=== PATIENT | female | born 1995 ===

== ENCOUNTER 2017-04-02 11:50 | Emergency (ER) | payer MEDICAID, OTHER ==
[2017-04-02 11:57] VITALS: BP 117/80; PULSE 70; RESP 16; TEMP 98.2; O2SAT 99
--- NOTE | 2017-04-02 12:53 | ED PDOC ---
HPI: Abdomen Time Seen by Provider: 04/02/17 12:46 Chief Complaint (Nursing): Abdominal Pain Chief Complaint (Provider): 12:20 History Per: Patient (22 y/o female here for evaluation of rash in multiple locations of abdomen/neck x 1 year noted with increasing pigmentation on abdomen. Has been told in past she has 'eczema' but would like further testing. Has not been taking any medications. Denies any vaginal discharge/ urinary discomfort.) Past Medical History Reviewed: Historical Data, Nursing Documentation, Vital Signs Vital Signs: Last Vital Signs Temp 98.2 F 04/02/17 11:57 Pulse 70 04/02/17 11:57 Resp 16 04/02/17 11:57 BP 117/80 04/02/17 11:57 Pulse Ox 99 04/02/17 11:57 - Family History Family History: States: Unknown Family Hx - Home Medications Home Medications: Ambulatory Orders Medication Instructions Recorded Ibuprofen [Motrin Tab] 800 mg PO Q6H PRN #20 tab 08/23/16 Ondansetron ODT [Zofran ODT] 4 mg PO QID #20 odt 08/23/16 Clotrimazole/Betamethasone 0.5 ml TOP BID #1 bottle 04/02/17 [Lotrisone] - Allergies Allergies/Adverse Reactions: Allergies Allergy/AdvReac Type Severity Reaction Status Date / Time No Known Allergies Allergy Verified 05/10/15 20:40 Review of Systems ROS Statement: Except As Marked, All Systems Reviewed And Found Negative Physical Exam - Reviewed Nursing Documentation Reviewed: Yes Vital Signs Reviewed: Yes - Physical Exam Appears: Positive for: Well, Non-toxic, No Acute Distress Head Exam: Positive for: ATRAUMATIC, NORMAL INSPECTION, NORMOCEPHALIC Skin: Positive for: Normal Color, Warm, Rash (small region of hyperpigmentation noted right lateral neck. Noted 2 cm region left lower abdomen with scaly region surrounding region of hyperpigmentation and centralized hypopigmentation. ) Eye Exam: Positive for: EOMI, Normal appearance, PERRL ENT: Positive for: Normal ENT Inspection Neck: Positive for: Normal, Painless ROM Cardiovascular/Chest: Positive for: Regular Rate, Rhythm Respiratory: Positive for: CNT, Normal Breath Sounds Gastrointestinal/Abdominal: Positive for: Normal Exam, Bowel Sounds, Soft Back: Positive for: Normal Inspection Extremity: Positive for: Normal ROM Neurologic/Psych: Positive for: Alert, Oriented - ECG O2 Sat by Pulse Oximetry: 99 Disposition - Clinical Impression Clinical Impression: Fungal infection - Patient ED Disposition Is Patient to be Admitted: No - Disposition Referrals: Vinod Bond MD [Staff Provider] - Disposition: Routine/Home Disposition Time: 12:54 Condition: FAIR Prescriptions: Clotrimazole/Betamethasone [Lotrisone] 0.5 ml TOP BID #1 bottle Instructions: Tinea Corporis (ED) Forms: [employer] (Citizen Of [place])
[2017-04-02 12:55] LABS: RBC URINE 3 /hpf (0-3); URINE BACTERIA RARE (<OCC); URINE BILIRUBIN NEGATIVE (NEGATIVE); URINE BLOOD NEGATIVE (NEGATIVE); URINE COLOR YELLOW (YELLOW); URINE GLUCOSE (UA) NEG (Normal); URINE KETONE NEGATIVE (NEGATIVE); URINE LEUKOCYTE ESTERASE MOD Leu/uL (Negative); URINE PROTEIN NEGATIVE (NEGATIVE); URINE UROBILINOGEN 0.2-1.0 mg/dL (0.2-1.0)
[2017-04-02 12:57] LABS: WBC URINE 20 /hpf (0-5)
== END 2017-04-02 13:15 | disposition home or self-care (01) ==
LOC: H.ER 11:50
DX: B36.9 Superficial mycosis, unspecified (principal)

== ENCOUNTER 2018-01-10 17:49 | Emergency (ER) | payer MEDICAID ==
[2018-01-10 18:24] VITALS: BP 128/88; PULSE 84; RESP 16; TEMP 98.1; O2SAT 100
== END 2018-01-10 22:05 | disposition left against medical advice (07) ==
LOC: H.ER 17:49
DX: Z02.89 Encounter for other administrative examinations (principal)

== ENCOUNTER 2018-01-12 10:34 | Emergency (ER) | payer MEDICAID ==
[2018-01-12 10:48] VITALS: O2SAT 100
--- NOTE | 2018-01-12 11:24 | ED PDOC ---
HPI: Female Pain Time Seen by Provider: 01/12/18 11:08 Chief Complaint (Nursing): Abdominal Pain Chief Complaint (Provider): cramping, spotting, History Per: Patient History/Exam Limitations: no limitations Onset/Duration Of Symptoms: Days (2), Intermittent Episodes Severity: Moderate Additional Complaint(s): 22yo female presents with +home test and bilateral pelvic cramping, vaginal spotting. Denies dizziness, syncope or unilateral pain. LMP December 10, regular. Denies history STDs or prior . Abnormal Vaginal Bleeding: Yes Last Menstral Period: december 10 : 0 Para: 0 Past Medical History Reviewed: Historical Data, Nursing Documentation, Vital Signs Vital Signs: Last Vital Signs Temp 98.3 F 01/12/18 10:47 Pulse 98 H 01/12/18 10:47 Resp 20 01/12/18 10:47 BP 109/73 01/12/18 10:47 Pulse Ox 100 01/12/18 10:47 - Medical History PMH: No Chronic Diseases - Surgical History Surgical History: No Surg Hx - Family History Family History: States: Unknown Family Hx - Living Arrangements Living Arrangements: With Family - Social History Drugs: Denies - Home Medications Home Medications: Ambulatory Orders Medication Instructions Recorded Ibuprofen [Motrin Tab] 800 mg PO Q6H PRN #20 tab 08/23/16 Ondansetron ODT [Zofran ODT] 4 mg PO QID #20 odt 08/23/16 Clotrimazole/Betamethasone 0.5 ml TOP BID #1 bottle 04/02/17 [Lotrisone] - Allergies Allergies/Adverse Reactions: Allergies Allergy/AdvReac Type Severity Reaction Status Date / Time No Known Allergies Allergy Verified 01/10/18 18:21 Review of Systems Constitutional: Negative for: Fever Cardiovascular: Negative for: Chest Pain Respiratory: Negative for: Shortness of Breath Gastrointestinal: Positive for: Nausea, Abdominal Pain Genitourinary Female: Positive for: Vaginal Bleeding, Pelvic Pain. Negative for : Dysuria, Frequency, Hematuria, Vaginal Discharge Musculoskeletal: Positive for: Back Pain. Negative for: Neck Pain Skin: Negative for: Rash, Lesions, Jaundice Neurological: Negative for: Weakness, Numbness, Headache Physical Exam - Reviewed Nursing Documentation Reviewed: Yes Vital Signs Reviewed: Yes - Physical Exam Appears: Positive for: Well, Non-toxic, No Acute Distress Head Exam: Positive for: ATRAUMATIC, NORMAL INSPECTION, NORMOCEPHALIC Skin: Positive for: Normal Color, Warm, DRY Eye Exam: Positive for: EOMI, Normal appearance, PERRL ENT: Positive for: Normal ENT Inspection Neck: Positive for: Normal, Painless ROM Cardiovascular/Chest: Positive for: Regular Rate, Rhythm Respiratory: Positive for: CNT, Normal Breath Sounds Gastrointestinal/Abdominal: Positive for: Soft, Tenderness (mild pelvic tenderness b/l). Negative for: Guarding Back: Positive for: Normal Inspection Extremity: Positive for: Normal ROM Neurologic/Psych: Positive for: Alert, Oriented. Negative for: Motor/Sensory Deficits - Laboratory Results Result Diagrams: 01/12/18 11:30 01/12/18 11:30 - ECG O2 Sat by Pulse Oximetry: 100 Disposition - Clinical Impression Clinical Impression: Threatened - Disposition [facility] Disposition Time: 14:50 Condition: STABLE Additional Instructions: See your OB doctor or return to ER in 48-72 hours for repeat testing. Your Beta hormone today was 1,190. Return to ER earlier for any worse pain, bleeding, weakness or any concern. Use only tylenol for pain. Instructions: Threatened Miscarriage (DC) Forms: [employer] (Romanian)
[2018-01-12 11:47] LABS: BASO % 0.5 % (0.0-2.0); EOS # 0.1 K/uL (0.0-0.7); EOS % 1.6 % (0.0-4.0); LYMPH # 1.8 K/uL (1.0-4.3); LYMPH % 21.8 % (20.0-40.0); MEAN CELL VOLUME 91.3 fl (81.0-99.0); MEAN CORPUSCULAR HEMOGLOBIN 30.6 pg (27.0-31.0); MEAN CORPUSCULAR HGB CONC 33.5 g/dL (33.0-37.0); MEAN PLATELET VOLUME 8.6 fl (7.2-11.7); MONO # 0.6 K/uL (0.0-0.8); MONO % 7.4 % (0.0-10.0); NEUT # 5.7 K/uL (1.8-7.0); NEUT % 68.7 % (50.0-75.0); NRBC % 0.1 % (0.0-0.0); RBC 4.25 Mil/uL (3.80-5.20); RED CELL DISTRIBUTION WIDTH 12.5 % (11.5-14.5); WHITE BLOOD COUNT 8.3 K/uL (4.8-10.8)
[2018-01-12 12:03] LABS: ALB/GLOB RATIO 1.1 (1.0-2.1); ALT/SGPT 26 U/L (9-52); AST/SGOT 22 U/L (14-36); BLOOD UREA NITROGEN 9 mg/dl (7-17); CALCIUM 9.5 mg/dL (8.4-10.2); GFR AFRICAN-AMERICAN > 60; GFR NON-AFRICAN AMERICAN > 60
--- NOTE | 2018-01-12 15:53 | US ---
PROCEDURE: OB Pelvic Ultrasound HISTORY: preg bleeding quant 1100 LMP: 12/13/2017 COMPARISON: None available. FINDINGS: UTERUS: Uterus measures 7.6 x 4.7 x 5.3 cm. Anteverted. Normal in size and appearance. Endometrial measures 1.9 cm. Small anechoic area within the endometrial canal measuring up to 0.3 cm, out of range. No yolk sac or pole identified. CERVIX: Measures 3.6 cm. Long and closed. No cervical abnormality seen. RIGHT OVARY: Measures 3.5 x 2.5 x 3.7 cm. Cyst measuring 2.0 x 2.0 x 2.3 cm. Normal flow. LEFT OVARY: Measures 2.9 x 1.5 x 2.5 cm. No solid mass. Normal flow. FREE FLUID: None. OTHER FINDINGS: None. IMPRESSION: Small 3 mm cystic structure within the endometrium which may represent a small gestational sac. Findings may represent early normal/ abnormal with ectopic not excluded. Close clinical follow-up with serial pelvic sonography and serum beta HCG levels is recommended.
[2018-01-12 16:26] VITALS: BP 110/76; PULSE 78; RESP 18; TEMP 98.1
== END 2018-01-12 16:27 | disposition home or self-care (01) ==
LOC: H.ER 10:34
DX: O20.0 Threatened abortion (principal)

== ENCOUNTER 2018-01-14 10:24 | Emergency (ER) | payer MEDICAID ==
[2018-01-14 10:29] VITALS: BMI 20.4
[2018-01-14 10:37] VITALS: O2SAT 98
--- NOTE | 2018-01-14 10:52 | ED PDOC ---
HPI: Female Pain Chief Complaint (Provider): Vaginal bleeding in History Per: Patient History/Exam Limitations: no limitations Onset/Duration Of Symptoms: Days Current Symptoms Are (Timing): Gone Now Severity: None Additional Complaint(s): 22 y/o F with h/o allergies presents to ED to repeat Beta-HCG hormone. at 4 wks of GA based in LMP, LMP was 12/13/17. Patient came to ED on 01/12/18 complaining of pelvic cramping sensation, and vaginal spotting. Patient states her vaginal spotting stopped yesterday, and her lower abdominal cramps have improved. Lower abd cramps are intermittent, and less intense than before. Denies vaginal spotting or bleeding at this time. <Halina Ward - Last Filed: 01/14/18 12:40> <David Killian - Last Filed: 01/17/18 12:25> Time Seen by Provider: 01/14/18 10:35 Chief Complaint (Nursing): Medical Clearance Supervising Attending Note - Supervising Attending Note The Documented history was done by the: Physician Silk Screen Printer Helper, Attending Physician The documented physical exam was done by the: Physician Silk Screen Printer Helper, Attending Physician The documented procedures were done by the: Physician Silk Screen Printer Helper, Attending Physician - Attestation: I have personally seen and examined this patient.: Yes I have fully participated in the care of the patient.: Yes I have reviewed all pertinent clinical information, including history, physical exam and plan: Yes <David Killian - Last Filed: 01/17/18 12:25> Past Medical History Vital Signs: Last Vital Signs Temp 98.7 F 01/14/18 10:28 Pulse 100 H 01/14/18 10:28 Resp BP 112/66 01/14/18 10:28 Pulse Ox 98 01/14/18 10:35 - Medical History PMH: No Chronic Diseases - Family History Family History: States: Unknown Family Hx - Social History Current smoker - smoking cessation education provided: No Ex-Smoker (has not smoked in the last 12 months): No Alcohol: None Drugs: Denies <Halina Ward - Last Filed: 01/14/18 12:40> Reviewed: Historical Data, Nursing Documentation, Vital Signs Vital Signs: Last Vital Signs Temp 98.2 F 01/14/18 12:42 Pulse 82 01/14/18 12:42 Resp 14 01/14/18 12:42 BP 126/79 01/14/18 12:42 Pulse Ox 98 01/14/18 12:42 - Surgical History Surgical History: No Surg Hx <David Killian - Last Filed: 01/17/18 12:25> - Home Medications Home Medications: Ambulatory Orders Medication Instructions Recorded Ibuprofen [Motrin Tab] 800 mg PO Q6H PRN #20 tab 08/23/16 Ondansetron ODT [Zofran ODT] 4 mg PO QID #20 odt 08/23/16 Clotrimazole/Betamethasone 0.5 ml TOP BID #1 bottle 04/02/17 [Lotrisone] - Allergies Allergies/Adverse Reactions: Allergies Allergy/AdvReac Type Severity Reaction Status Date / Time No Known Allergies Allergy Verified 01/14/18 10:34 Review of Systems ROS Statement: Except As Marked, All Systems Reviewed And Found Negative (as per HPI) <Halina Ward - Last Filed: 01/14/18 12:40> Physical Exam - Reviewed Nursing Documentation Reviewed: Yes Vital Signs Reviewed: Yes - Physical Exam Appears: Positive for: Non-toxic, No Acute Distress Head Exam: Positive for: ATRAUMATIC, NORMOCEPHALIC Skin: Positive for: Normal Color, Warm, Dry. Negative for: Pallor, Rash Eye Exam: Positive for: Normal appearance Neck: Positive for: Normal, Supple Cardiovascular/Chest: Positive for: Regular Rate, Rhythm. Negative for: Edema, Murmur, Bradycardia, Tachycardia Respiratory: Positive for: Normal Breath Sounds. Negative for: Decreased Breath Sounds, Accessory Muscle Use, Crackles, Rales, Rhonchi, Wheezing, Respiratory Distress Gastrointestinal/Abdominal: Positive for: Normal Exam, Bowel Sounds (present), Soft. Negative for: Tenderness, Distended, Guarding, Rebound Back: Positive for: Normal Inspection. Negative for: L CVA Tenderness, R CVA Tenderness Extremity: Negative for: Pedal Edema, Calf Tenderness Neurologic/Psych: Positive for: Alert <Halina Ward - Last Filed: 01/14/18 12:40> - ECG O2 Sat by Pulse Oximetry: 98 <Halina Ward - Last Filed: 01/14/18 12:40> Medical Decision Making Medical Decision Making: H/O vaginal bleeding in -No evidence of acute abdomen at this evaluation -repeat Beta HCG case discussed with Maria D -Beta-HCG trending up -OB irrigation flume layer, Dr. Arreola, was consulted for recommendations. Dr. Arreola recommends come back on Wednesday (01/16/18) to repeat Beta-HCG, and TV OB ultrasound. -Patient was informed about Beta results, and OB consultation recommendations. She understandings instructions given. ER precautions given, return to ED if abdominal pain, and/or vaginal bleeding or other worrisome symptoms. Return on to repeat beta HCG, and ultrasound. -Case discussed with Dr. Killian <Halina Ward - Last Filed: 01/14/18 12:40> Disposition Discussed With : David Killian - Disposition Disposition: Routine/Home Disposition Time: 12:39 <Halina Ward - Last Filed: 01/14/18 12:40> - Patient ED Disposition Is Patient to be Admitted: No Counseled Patient/Family Regarding: Studies Performed, Diagnosis <David Killian - Last Filed: 01/17/18 12:25> - Clinical Impression Clinical Impression: Threatened - Disposition Referrals: [facility] [Outside] Condition: GOOD Additional Instructions: Return in 24 hours for repeat hormone and ultrasound check. Return immediately if abdominal pain or vaginal bleeding start. Instructions: Threatened Miscarriage (DC)
[2018-01-14 12:43] VITALS: BP 126/79; PULSE 82; RESP 14; TEMP 98.2
== END 2018-01-14 12:43 | disposition home or self-care (01) ==
LOC: H.ER 10:24
DX: O20.0 Threatened abortion (principal)

== ENCOUNTER 2018-01-16 14:06 | Emergency (ER) | payer MEDICAID ==
[2018-01-16 14:07] VITALS: BMI 20.4
[2018-01-16 14:23] VITALS: O2SAT 100
--- NOTE | 2018-01-16 14:28 | ED PDOC ---
HPI: General Adult Time Seen by Provider: 01/16/18 14:28 Chief Complaint (Nursing): Abnormal Labs Chief Complaint (Provider): repeat labs History Per: Patient Additional Complaint(s): 22 y/o female presents to ED for follow up. Patient is currently 5 weeks and was seen 2 days ago with abd pain and bleeding. She was told to come back today for repeat US and repeat beta. Patient states bleeding and cramping have resolved. She is . PMD: none Past Medical History Reviewed: Historical Data, Nursing Documentation, Vital Signs Vital Signs: Last Vital Signs Temp 98.5 F 01/16/18 14:21 Pulse 87 01/16/18 14:21 Resp 16 01/16/18 14:21 BP 113/76 01/16/18 14:21 Pulse Ox 100 01/16/18 14:57 - Medical History PMH: No Chronic Diseases - Surgical History Surgical History: No Surg Hx - Family History Family History: States: No Known Family Hx - Living Arrangements Living Arrangements: With Family - Social History Current smoker - smoking cessation education provided: No Alcohol: None Drugs: Denies - Home Medications Home Medications: Ambulatory Orders Medication Instructions Recorded Ibuprofen [Motrin Tab] 800 mg PO Q6H PRN #20 tab 08/23/16 Ondansetron ODT [Zofran ODT] 4 mg PO QID #20 odt 08/23/16 Clotrimazole/Betamethasone 0.5 ml TOP BID #1 bottle 04/02/17 [Lotrisone] - Allergies Allergies/Adverse Reactions: Allergies Allergy/AdvReac Type Severity Reaction Status Date / Time No Known Allergies Allergy Verified 01/14/18 10:34 Review of Systems ROS Statement: Except As Marked, All Systems Reviewed And Found Negative Gastrointestinal: Negative for: Abdominal Pain Genitourinary Female: Negative for: Dysuria, Vaginal Discharge, Vaginal Bleeding , Pelvic Pain Physical Exam - Reviewed Nursing Documentation Reviewed: Yes Vital Signs Reviewed: Yes - Physical Exam Appears: Positive for: Well, Non-toxic, No Acute Distress Skin: Positive for: Normal Color. Negative for: Rash Eye Exam: Positive for: Normal appearance Cardiovascular/Chest: Positive for: Regular Rate, Rhythm Respiratory: Positive for: Normal Breath Sounds. Negative for: Wheezing, Respiratory Distress Gastrointestinal/Abdominal: Positive for: Soft. Negative for: Tenderness, Distended, Guarding, Rebound Back: Negative for: L CVA Tenderness, R CVA Tenderness Extremity: Positive for: Normal ROM Neurologic/Psych: Positive for: Alert, Oriented - Laboratory Results Urine POC: Positive - ECG O2 Sat by Pulse Oximetry: 100 Pulse Ox Interpretation: Normal - Other Rad OB TV US X-Ray: Read By Radiologist X-Ray Interpretation: see below Medical Decision Making Medical Decision Makin22 year old pregant female here for repeat labs and US Plan: OB US Beta quant Beta from 01/14/18 - 2551.30 Beta from today - 6452.10 US: HISTORY: 5 weeks, abd pain ; last measure. 12/13/2017 suggests of 4 weeks 6 days. COMPARISON: Transvaginal pelvic ultrasound 01/12/2018. TECHNIQUE: Transvaginal pelvic ultrasound was performed with longitudinal and transverse images submitted for interpretation. FINDINGS: UTERUS: Measures 7.2 x 3.8 x 5.8 cm. Uterus is stable in appearance appearing anteverted without discrete myometrial pathology once again. ENDOMETRIUM: Fluid is identified within the endometrial cavity with decidual reaction likely present with mean sac diameter of 0.75 cm. Yolk sacs identified measuring 0.1 cm. No pole appreciable. Based on mean sac diameter, the did intrauterine gestation represents with us in 5 weeks estimated gestational age. CERVIX: Cervix remains nonfocal and measures 3.6 cm. RIGHT OVARY: Measures 2.9 x 2.4 x 2.9 cm. No solid mass. Normal flow. A 2.6 x 1.7 x 2.6 cm simple cyst is slightly larger at the right ovary. LEFT OVARY: Measures 2.5 x 1.9 x 2.7 cm. No solid mass. Normal flow. FREE FLUID: No significant free fluid noted. OTHER FINDINGS: None. IMPRESSION: An early intrauterine gestation appears to be developing in the endometrial cavity now identified but with only yolk sac within the gestational sac. No pole yet identifiable. Age estimate is less than 5 weeks based on mean sac diameter. This agrees with LMP derived dates of 4 weeks 6 days. One-week follow-up transvaginal ultrasonography recommended as well as clinical correlation further. 2.6 cm right ovarian simple cyst slightly larger. Patient is aware of all findings, all questions answered. Advised repeat US in 1 week with OB. Patient instructed to return to ED any time for acutely worsening symptoms or any concerns. Disposition - Clinical Impression Clinical Impression: - Patient ED Disposition Is Patient to be Admitted: No Counseled Patient/Family Regarding: Studies Performed, Diagnosis, Need For Followup - Disposition [facility]] Disposition: Routine/Home Disposition Time: 15:22 Condition: STABLE Additional Instructions: Follow up with OB for repeat ultrasound in 1 week or return any time if acutely worse. Instructions: - The First Month Forms: [employer] (Spanish)
--- NOTE | 2018-01-16 15:15 | US ---
HISTORY: 5 weeks, abd pain ; last measure. 12/13/2017 suggests of 4 weeks 6 days. COMPARISON: Transvaginal pelvic ultrasound 01/12/2018. TECHNIQUE: Transvaginal pelvic ultrasound was performed with longitudinal and transverse images submitted for interpretation. FINDINGS: UTERUS: Measures 7.2 x 3.8 x 5.8 cm. Uterus is stable in appearance appearing anteverted without discrete myometrial pathology once again. ENDOMETRIUM: Fluid is identified within the endometrial cavity with decidual reaction likely present with mean sac diameter of 0.75 cm. Yolk sacs identified measuring 0.1 cm. No pole appreciable. Based on mean sac diameter, the did intrauterine gestation represents with us in 5 weeks estimated gestational age. CERVIX: Cervix remains nonfocal and measures 3.6 cm. RIGHT OVARY: Measures 2.9 x 2.4 x 2.9 cm. No solid mass. Normal flow. A 2.6 x 1.7 x 2.6 cm simple cyst is slightly larger at the right ovary. LEFT OVARY: Measures 2.5 x 1.9 x 2.7 cm. No solid mass. Normal flow. FREE FLUID: No significant free fluid noted. OTHER FINDINGS: None. IMPRESSION: An early intrauterine gestation appears to be developing in the endometrial cavity now identified but with only yolk sac within the gestational sac. No pole yet identifiable. Age estimate is less than 5 weeks based on mean sac diameter. This agrees with LMP derived dates of 4 weeks 6 days. One-week follow-up transvaginal ultrasonography recommended as well as clinical correlation further. 2.6 cm right ovarian simple cyst slightly larger.
[2018-01-16 15:24] VITALS: BP 122/70; PULSE 70; RESP 18; TEMP 98
== END 2018-01-16 15:24 | disposition home or self-care (01) ==
LOC: H.ER 14:06
DX: O26.891 Other specified pregnancy related conditions, first trimester (principal); Z3A.01 Less than 8 weeks gestation of pregnancy

== ENCOUNTER 2018-01-25 16:01 | Emergency (ER) | payer MEDICAID ==
[2018-01-25 16:01] VITALS: BMI 20.4
[2018-01-25 16:07] VITALS: TEMP 98.5; O2SAT 100
[2018-01-25 16:39] LABS: BASO % 0.4 % (0.0-2.0); EOS # 0.1 K/uL (0.0-0.7); EOS % 1.4 % (0.0-4.0); HEMOGLOBIN 12.8 g/dL (12.0-16.0); LYMPH # 2.7 K/uL (1.0-4.3); LYMPH % 28.7 % (20.0-40.0); MEAN CELL VOLUME 92.3 fl (81.0-99.0); MEAN CORPUSCULAR HEMOGLOBIN 30.7 pg (27.0-31.0); MEAN CORPUSCULAR HGB CONC 33.2 g/dL (33.0-37.0); MEAN PLATELET VOLUME 8.3 fl (7.2-11.7); MONO # 0.7 K/uL (0.0-0.8); MONO % 7.7 % (0.0-10.0); NEUT # 5.9 K/uL (1.8-7.0); NEUT % 61.8 % (50.0-75.0); NRBC % 0.1 % (0.0-0.0); RBC 4.19 Mil/uL (3.80-5.20); RED CELL DISTRIBUTION WIDTH 12.8 % (11.5-14.5); WHITE BLOOD COUNT 9.6 K/uL (4.8-10.8)
[2018-01-25 17:15] LABS: ALB/GLOB RATIO 1.2 (1.0-2.1); ALBUMIN 4.4 g/dL (3.5-5.0); ALT/SGPT 31 U/L (9-52); AST/SGOT 48 U/L (14-36); BLOOD UREA NITROGEN 6 mg/dl (7-17); CALCIUM 9.4 mg/dL (8.4-10.2); GFR AFRICAN-AMERICAN > 60; GFR NON-AFRICAN AMERICAN > 60
--- NOTE | 2018-01-25 17:33 | ED PDOC ---
HPI: Female Pain Time Seen by Provider: 01/25/18 16:07 Chief Complaint (Nursing): Female Genitourinary Chief Complaint (Provider): Vaginal bleeding in History Per: Patient History/Exam Limitations: no limitations Onset/Duration Of Symptoms: Mins (30) Current Symptoms Are (Timing): Better Quality Of Discomfort: Other (No pain) Associated Symptoms: denies: Fever, Chills, Nausea, Vomiting, Loss Of Appetite Alleviating Factors: None Additional Complaint(s): 22 yo presents at 6 week of gestation for evaluation of vaginal bleeding. Pt had US completed in ER on 01/16 and on 01/21 with her OB (DR. Castro). Pt states she was also told she had a polyp during pelvic exam by her OB. Pt states approx 30 minutes [employer] she had vaginal bleeding similar to menses. PT denies pelvic pain. Pt without cardiac activity on previous US. Past Medical History Reviewed: Historical Data, Nursing Documentation, Vital Signs Vital Signs: Last Vital Signs Temp 98.5 F 01/25/18 16:05 Pulse 89 01/25/18 16:05 Resp 16 01/25/18 16:05 BP 122/79 01/25/18 16:05 Pulse Ox 100 01/25/18 16:05 - Medical History PMH: No Chronic Diseases - Surgical History Surgical History: No Surg Hx - Family History Family History: States: Unknown Family Hx - Living Arrangements Living Arrangements: With Family - Social History Current smoker - smoking cessation education provided: No - Home Medications Home Medications: Ambulatory Orders Medication Instructions Recorded Ibuprofen [Motrin Tab] 800 mg PO Q6H PRN #20 tab 08/23/16 Ondansetron ODT [Zofran ODT] 4 mg PO QID #20 odt 08/23/16 Clotrimazole/Betamethasone 0.5 ml TOP BID #1 bottle 04/02/17 [Lotrisone] - Allergies Allergies/Adverse Reactions: Allergies Allergy/AdvReac Type Severity Reaction Status Date / Time No Known Allergies Allergy Verified 01/25/18 16:05 Review of Systems ROS Statement: Except As Marked, All Systems Reviewed And Found Negative Constitutional: Negative for: Fever, Chills Respiratory: Negative for: Cough, Shortness of Breath Gastrointestinal: Negative for: Nausea, Vomiting, Abdominal Pain Genitourinary Female: Positive for: Vaginal Bleeding. Negative for: Pelvic Pain Physical Exam - Reviewed Nursing Documentation Reviewed: Yes Vital Signs Reviewed: Yes - Physical Exam Appears: Positive for: Well, Non-toxic, No Acute Distress Head Exam: Positive for: ATRAUMATIC, NORMAL INSPECTION, NORMOCEPHALIC Skin: Positive for: Normal Color, Warm, DRY Eye Exam: Positive for: Normal appearance ENT: Positive for: Normal ENT Inspection Neck: Positive for: Normal, Painless ROM Cardiovascular/Chest: Positive for: Regular Rate, Rhythm Respiratory: Positive for: CNT, Normal Breath Sounds Gastrointestinal/Abdominal: Positive for: Normal Exam, Soft. Negative for: Tenderness Back: Positive for: Normal Inspection Extremity: Positive for: Normal ROM Neurologic/Psych: Positive for: Alert - Laboratory Results Result Diagrams: 01/25/18 16:30 01/25/18 16:30 - ECG O2 Sat by Pulse Oximetry: 100 Medical Decision Making Medical Decision Making: (+) subchorionic bleed with (+) FHT measuring 6 2 Discussed with patient. No intercourse. Disposition - Clinical Impression Clinical Impression: Subchorionic hemorrhage in first trimester - Patient ED Disposition Is Patient to be Admitted: No Counseled Patient/Family Regarding: Diagnosis, Need For Followup - Disposition Disposition: Routine/Home Disposition Time: 18:19 Condition: GOOD Additional Instructions: No intercourse. Follow-up with OB. Instructions: Bleeding With (DC) Forms: [employer] ([place]ian)
--- NOTE | 2018-01-25 17:59 | US ---
PROCEDURE: OB Pelvic Ultrasound HISTORY: Vaginal bleeding in LMP: 12/13/2017 COMPARISON: Pelvic ultrasound dated 01/16/2018. TECHNIQUE: Grayscale, color Doppler and spectral evaluation the pelvis performed transvaginally FINDINGS: UTERUS: Gestational sac: Single intrauterine gestation. Measures 1.7 cm compatible with estimated gestational age of 6 weeks, 0 days Yolk sac: Measures 0.4 cm pole: Plum-rump length measures 0.6 cm compatible with estimated gestational age of 6 weeks, 3 days. Heart rate: 112 bpm. age (Ultrasound estimated): 6 weeks, 2 days Tsering-gestational hemorrhage: Small subchorionic hemorrhage measuring 1.2 x 0.7 x 1.3 cm. Date of delivery (Ultrasound estimated) : 09/18/2018 CERVIX: Measures 3.4 cm. No cervical abnormality identified. Long and closed. RIGHT OVARY: Measures 3.7 x 2.2 x 3.3 cm. Dominant follicle measuring 1.9 x 1.8 x 1.8 cm. Normal flow. LEFT OVARY: Measures 2.3 x 1.6 x 2.3 cm. No solid mass. Normal flow. IMPRESSION: Single intrauterine gestation with average ultrasound age 6 weeks, 2 days. heart rate 112 beats per minute. Cervix long and closed. Small subchorionic bleed measuring up to 1.3 cm.
[2018-01-25 18:37] VITALS: BP 120/75; PULSE 84; RESP 18
== END 2018-01-25 18:38 | disposition home or self-care (01) ==
LOC: H.ER 16:01
DX: O20.9 Hemorrhage in early pregnancy, unspecified (principal); Z3A.01 Less than 8 weeks gestation of pregnancy